=== PATIENT | female | born 1945 | race Caucasian/White ===

== ENCOUNTER 2022-05-05 17:36 | Observation (INO) | payer OTHER, SELFPAY ==
[2022-05-05 17:51] VITALS: BP 170/84; PULSE 100; RESP 18; TEMP 36.6; O2SAT 100; BMI 18.3
--- NOTE | 2022-05-05 18:05 | CRLHL7_ITS ---
For Patients: As a result of the Century Cures Act, medical imaging exams and procedure reports are released immediately into your electronic medical record. You may view this report before your referring provider. If you have questions, please contact your health care provider. Indication: Injury and pain. Technique: Pelvis and right hip 3 views. Comparison: 04/20/2021. Findings: Bones: Alignment is normal. Nondisplaced fractures of the right superior and inferior pubic rami. Right hip arthroplasty. Hardware appears intact and appropriately seated. Joint spaces: Mild left hip degenerative changes. Degenerative changes of the lower lumbar spine. Soft tissues: Unremarkable. Impression: 1. Nondisplaced right obturator ring fracture. 2. Stable right hip arthroplasty. Dictated by Ortega Downey MD @ 05/05/2022 7:03:57 PM (Electronically Signed)
--- NOTE | 2022-05-05 18:07 | ED.GENADULT ---
HPI - General Adult General Time Seen by Provider: 18:07 Date Seen: 05/05/22 Chief complaint: Fall/Minor Trauma Stated complaint: Fall Time Seen by Provider: 05/05/22 17:40 Source: patient Mode of arrival: wheelchair Limitations: physical limitation History of Present Illness HPI narrative: Patient is a 76 white female who is very active, who sees Ela Saenz in [place] for primary care. She tripped on some flagstone on her a walk and fell on her right hip, feels she might a twisted her right ankle but she is able to move that fully and has no swelling. She has some pain in her groin on the right and some lateral pain. She had a history of hip replacement with Dr. Walsh on the right in 2019. She has no other injuries no headache no back pain no neck pain no upper extremity symptoms. Presents to ED for evaluation. Related Data Allergies Allergy/AdvReac Type Severity Reaction Status Date / Time Antihistamines - Alkylamine AdvReac Verified 05/05/22 17:50 erythromycin base AdvReac Verified 05/05/22 17:48 Mlysizo-[id number] Reductase AdvReac Verified 05/05/22 17:50 Inhibitor trazodone AdvReac Verified 05/05/22 17:49 Review of Systems Status of ROS: Reports: 6 or more systems reviewed and unremarkable except as noted in History and below [facility] Social History Smoking Status: Never smoker Do you use any of these nicotine containing products: None Second hand tobacco smoke exposure: Yes How often do you have a drink containing alcohol: never How often do you have six or more drinks on one occasion: Never AUDIT-C Alcohol total score: 0 Non-prescribed substance use: denies use service: No Exam Narrative: Exam Narrative: Objective: Patient is no apparent distress, alert orient x3 HEENT is unremarkable neck is supple neurologic upper extremities unremarkable patient has no pain in her back or belly pelvis is stable she has got no bruising over her right lateral hip, postoperative scar that is well-healed noted she got a tiny abrasion over her carreon flexion extension internal external rotation of her right hip is fairly full distal CMS is normal her leg is not shortened or rotated. Neurologic is nonfocal in upper lower extremities. Good peripheral perfusion noted in upper lower extremities Const: Vital Signs, click to edit/add: Vital Signs - 24 hr 05/05/22 17:51 05/05/22 20:48 Temperature 98 F 97.4 F L Pulse Rate [Pulse Oximeter] 100 78 Respiratory Rate 18 Blood Pressure [Ri ght Upper Arm] 170/84 H 140/63 H Pulse Oximetry 100 Oxygen Delivery Me thod Room Air Course Vital Signs Vital signs: Initial Vital Signs Temperature 98 F 05/05/22 17:51 Temperature Source Temporal Artery Scan 05/05/22 17:51 Pulse Rate 100 05/05/22 17:51 Pulse Rhythm 05/05/22 17:51 Respiratory Rate 18 05/05/22 17:51 Blood Pressure 170/84 H 05/05/22 17:51 Blood Pressure Mean 112 05/05/22 17:51 Blood Pressure Position Supine 05/05/22 17:51 Pulse Oximetry 100 05/05/22 17:51 Oxygen Delivery Method 05/05/22 17:51 Vital Signs Temperature 98 F 05/05/22 17:51 Pulse Rate 100 05/05/22 17:51 Respiratory Rate 18 05/05/22 17:51 Blood Pressure 170/84 H 05/05/22 17:51 Pulse Oximetry 100 05/05/22 17:51 Oxygen Delivery Method 05/05/22 17:51 Temperature 97.4 F L 05/05/22 20:48 Pulse Rate 78 05/05/22 20:48 Respiratory Rate 18 05/05/22 17:51 Blood Pressure 140/63 H 05/05/22 20:48 Pulse Oximetry 100 05/05/22 17:51 Oxygen Delivery Method 05/05/22 17:51 Medical Decision Making [facility] Narrative Medical decision making narrative: The patient fell on her right hip and sustained pain, she has had hip replacement on the right 2 years ago, she has fairly full range of motion. For completeness I think an x-ray of her pelvis and right hip would be appropriate. She has no tenderness to her thigh knee leg or ankle other than she feels she strained her ankle but she has got full range of motion of her foot and ankle without swelling or tenderness to palpation. X-ray of the hip and pelvis as mention disposition pending findings. Lab Data Labs: Lab Results 05/05/22 Range/Units 19:29 SARS-CoV-2 (PCR) Negative SARS-CoV-2 (Negative) Influenza Type A (PCR) Negative PCR FLU A (Negative) Influenza Type B (PCR) Negative PCR FLU B (Negative) RSV (PCR) Negative PCR RSV (Negative) Discharge Plan Discharge Clinical Impression: Acute pain of right hip, Fall
--- NOTE | 2022-05-05 19:58 | W.PC.EDHO ---
Primary Language: Preferred Language: Orientation Status: [x] Alert & Oriented [] Slight Confusion [] Known Dx Dementia Transfers By: [] Assist of 1 [x] Assist of 2 [] Lift Description of Symptoms ED Triage Present Problem reports that she has injured her r hip, groin and Description ankle. had fallen when she caught her shoe on the [place] side walk. is very active in her home and does much gardening. unable to bear weight on her r leg. ED Triage Date of Onset of 05/05/22 Symptoms Female History Patient No Oxygen Administration Pulse Oximetry 100 Oxygen Delivery Method Room Air
[2022-05-05 20:22] LABS: PCR FLU A Negative PCR FLU A (Negative); PCR FLU B Negative PCR FLU B (Negative); PCR RSV Negative PCR RSV (Negative)
[2022-05-05 20:45] LABS: SARS PCR* Negative SARS-CoV-2 (Negative)
[2022-05-05 20:48] VITALS: BP 140/63; PULSE 78; TEMP 36.3
[2022-05-05 21:20] VITALS: BP 147/84; RESP 16; RESP 18; TEMP 36.7; O2SAT 99; BMI 17.7
[2022-05-05] MEDS: HYDROCODONE/ACETAMIN 7.5-325 TABLET 1 TAB PO (21:24)
[2022-05-05 21:58] VITALS: BP 147/84; RESP 18; TEMP 36.7; O2SAT 99
[2022-05-05 22:09] VITALS: O2SAT 99
--- NOTE | 2022-05-05 22:25 | P.IMHP_ITS ---
Hospitalist- H&P: HPI History of Present Illness Time Seen by Provider: 20:00 Date Seen: 05/05/22 Chief complaint: Right hip pain after a fall from standing Narrative: Maggi Ortiz is a 76 year old woman who presents to emergency department with complaint of the right hip pain status post fall from standing state. She was walking and tripped on some flag stone on her walk. Has right groin pain since then. Did undergo a right total hip arthroplasty in 2019. Did not strike her head. Did not have any loss of consciousness. No other injuries. Patient was assessed in our emergency department and determined to have sustained a nondisplaced right obturator ring fracture, involving the right superior and inferior pubic rami. Hardware of previous right total hip arthroplasty is in place and well seated. Our emergency department physician spoke with the on-call orthopedic surgeon. Orthopedic surgeon indicated that this is not the surgical fracture, recommended nonweightbearing for now, and they will assess the patient in consultation tomorrow morning. This is reviewed with the patient her . They are both agreeable to this. Patient will this be admitted to observation for pain management, as well as awaiting consultation with Orthopedic surgery, plus assessment with physical and occupational therapy. Review of Systems Status of ROS: Reports: 10 or more systems reviewed and unremarkable except as noted in History and below Narrative: Denies angina, anginal equivalent, syncope, near syncope, nausea, vomiting, palpitations, cough, dyspnea, paroxysmal nocturnal dyspnea, orthopnea, palpitations, fluttering, peripheral edema. Patient has longstanding, chronic disinterest in eating much. She tells me she is a picky eater. Denies abdominal pain, dyspepsia, dysphagia, odynophagia. Has chronic fecal incontinence related to episiotomy she had when bearing child in the remote past. Denies polyuria, polydipsia, polyphagia. Denies urinary frequency, dysuria, urgency, or hematuria. Weight has been relatively stable. For awhile her weight was lower. She works diligently with her to try to consume adequately on a daily basis. Denies fevers, rigors, diaphoresis. No recent febrile illness. No recent travel, trauma, or injury aside from what is specified above with today's incident. Requests full resuscitation in the event of cardiopulmonary demise. Does not want to be kept alive in a persistent vegetative state. Designates her as her power of assistant district attorney for health should that be required. Her primary care physician is Dr. Ela Saenz at [facility]. [facility] Medical History Adenomatous polyp Alcohol use disorder, moderate, in sustained remission Chronic obstructive pulmonary disease Diverticulosis Dry eyes, bilateral Essential hypertension Familial hypercholesteremia 2 para 2 History of diverticulitis Incontinence of feces with fecal urgency Major depressive disorder, recurrent, in full remission Mild persistent asthma Obstructive sleep apnea Osteoporosis REM sleep behavior disorder Rheumatic fever Surgical History H/O ureter repair History of bilateral cataract extraction History of colon resection Status post breast biopsy Status post right hip replacement Status post vaginal hysterectomy Social History Smoking Status: Never smoker Do you use any of these nicotine containing products: None Second hand tobacco smoke exposure: Yes How often do you have a drink containing alcohol: never How often do you have six or more drinks on one occasion: Never AUDIT-C Alcohol total score: 0 Non-prescribed substance use: denies use service: No Meds Home Medications and Allergies Home Medication Comments: 1. Fluoxetine 40 mg daily 2. Meloxicam 15 mg every morning 3. Alendronate 70 mg orally every week 4. Amlodipine 10 mg at bedtime 5. Hydrochlorothiazide 25 mg every morning 6. Tiotropium 18 mcg inhaled once daily 7. Albuterol metered-dose inhaler 2 inhalations every 4 hours as needed 8. Ellipta inhaler once daily 9. Clonazepam 1 mg at bedtime 10. Armodafinil (Nuvigil) 200 mg every morning 11. Melatonin 10 mg at bedtime 12. Loperamide 2 mg p.r.n. diarrhea 13. Refresh eyedrops for dry eyes as needed 14. Calcium with vitamin-D 500 mg daily 15. Ocuvite 1 tab daily 16. Cyanocobalamin 2000 mcg daily 17. Tonic with quinine p.r.n. 6 oz at bedtime for night leg cramps Allergies Allergy/AdvReac Type Severity Reaction Status Date / Time Antihistamines - Alkylamine AdvReac Verified 05/05/22 17:50 erythromycin base AdvReac Verified 05/05/22 17:48 [id number]-[id number] Reductase AdvReac Verified 05/05/22 17:50 Inhibitor trazodone AdvReac Verified 05/05/22 17:49 Exam Narrative: Exam Narrative: No acute distress. Appears anxious. Nevertheless appears comfortable when I see her. Alert, articulate, cooperative. Oriented to self, place, time, situation. Mood and affect are congruent. Thin, frail appearance. Vision and hearing are grossly normal. Midline nasal septum. Normal dentition. Buccal mucosa is moist. Midline trachea. Normal thyroid. Neck is supple. No adenopathy in the pre or postauricular chains, anterior-posterior cervical chains, submandibular or submental fossa, supra or infraclavicular fossa, or ax illa bilaterally. Lungs are clear to auscultation. No wheezing, rhonchi, or rales. Heart tones with regular rhythm, normal S1-S2. No murmur, gallop, or rub. Abdomen is thin, active bowel sounds, soft, nontender. Extremities without edema. Skin is warm, dry, intact. No focal motor neurologic deficits. Cranial nerves 3-12 are grossly normal. No tremor or asterixis. Const: Vital Signs, click to edit/add: Vital Signs - 24 hr 05/05/22 17:51 05/05/22 20:48 05/05/22 22:09 Temperature 98 F 97.4 F L Pulse Rate [Pulse Oximeter] 100 78 Respiratory Rate 18 Blood Pressure [Le ft Arm] Blood Pressure [Ri ght Upper Arm] 170/84 H 140/63 H Pulse Oximetry 100 99 Oxygen Delivery Me thod Room Air 05/05/22 21:58 05/05/22 21:58 Temperature 98.1 F Pulse Rate [Pulse Oximeter] Respiratory Rate 18 Blood Pressure [Le ft Arm] 147/84 H Blood Pressure [Ri ght Upper Arm] Pulse Oximetry 99 Oxygen Delivery Me thod Room Air Room Air Hospitalist - H&P: Result Imaging Pelvic x-ray: Attestation: I have reviewed the pertinent imaging results. Radiologist's impression: Nondisplaced right obturator ring fracture, involving the superior and inferior pubic rami on the right. Right hip arthroplasty hardware is intact and appropriately seated. Assessment and Plan Assessment and plan (1) Fall: Status: Acute (2) Acute pain of right hip: Status: Acute (3) Closed fracture of right superior pubic ramus: Status: Acute (4) Closed fracture of right inferior pubic ramus: Status: Acute (5) At risk for falls: Status: Acute Plan 1. Reviewed my impressions with the patient and her . 2. Answered their questions. 3. Admit to observation 4. Nonweightbearing for now. Await orthopedic surgery consultation in the morning. 5. Physical therapy, occupational therapy, and social services specialist consultation in the morning. 6. Analgesia p.r.n.. 7. Will ultimately need to continue with her treatment for osteoporosis. 8. Continue with supportive treatments for her underlying conditions as specified. 9. Will check an electrocardiogram, CBC, comprehensive metabolic panel, C reactive protein, lactate. 10. Patient and are agreeable to above stated plans and recommendations. Patient clearly states her preference is to try to return home if at all possible rather than have a transitional care stay. She understands this may not be possible in his willing to participate in transitional care rehabilitation program if absolutely needed.
[2022-05-05 23:00] VITALS: PULSE 74; RESP 18
[2022-05-05] MEDS: LOPERAMIDE HCL 2 MG CAPSULE PO (23:22)
[2022-05-05] MEDS: OXYCODONE 5 MG TABLET 2.5 MG PO (23:22)
[2022-05-05] MEDS: clonazePAM 0.5 MG TABLET 1 MG PO (23:23)
[2022-05-05] MEDS: MELATONIN 3 MG TABLET 12 MG PO (23:23)
[2022-05-05] MEDS: ACETAMINOPHEN 325 MG TABLET 650 MG PO (23:23)
[2022-05-05] MEDS: AMLODIPINE 10 MG TABLET PO (23:24)
[2022-05-06] VITALS: BP 118/64; PULSE 74; RESP 18; TEMP 36.7; O2SAT 99
[2022-05-06 00:41] VITALS: RESP 18; O2SAT 99
[2022-05-06] MEDS: OXYCODONE 5 MG TABLET 2.5 MG PO ×2 (03:44→13:17)
[2022-05-06 04:00] VITALS: BP 115/69; PULSE 70; RESP 18; TEMP 36.4; TEMP 36.7; O2SAT 99
--- NOTE | 2022-05-06 06:51 | PC.NURSE ---
Admitted last night with pelvic fx. Tolerating pain well overnight. Pain managed with PRN Oxycodone. Limited mobility on the right side but able to make major positional changed. vitals stable and afebrile. Nxo further concerns noted
[2022-05-06 06:58] LABS: Lactate* 0.5 mmol/L (0.5-1.9)
[2022-05-06 07:00] VITALS: PULSE 76; RESP 18
[2022-05-06 07:07] LABS: Basophils Absolute Auto 0.04 K/uL (0.00-0.30); Basophils Percent Auto 0.6 % (0.0-3.0); Eosinophils Absolute Auto 0.13 K/uL (0.00-0.50); Hematocrit 34.9 % (33.0-51.0); Hemoglobin* 11.8 gm/dL (12.0-16.0); Immature Granulocytes Abs Auto 0.02 K/uL (0.00-0.30); Lymphocytes Percent Auto 12.8 % (20-44); Mean Corpuscular HGB Conc 34 gm/dL (32-36); Mean Corpuscular Hemoglobin 30 pg (26-34); Mean Corpuscular Volume 88 fL (80-100); Monocytes Percent Auto 11.7 % (0.0-11.0); Neutrophils Percent Auto 72.6 % (42.0-72.0); Platelet Count* 226 K/uL (140-440); RDW Coefficient of Variation % 13.2 % (11.5-15.5); Red Blood Count 3.95 m/uL (4.00-5.20); White Blood Count* 6.48 K/uL (4.50-11.00)
[2022-05-06 07:08] LABS: Slide Review Reflex No
[2022-05-06 07:28] LABS: Chloride* 96 mmol/L (96-114); Sodium* 128 mmol/L (135-149)
[2022-05-06 07:29] LABS: Potassium* 3.8 mmol/L (3.6-5.1)
[2022-05-06 07:31] LABS: Alkaline Phosphatase* 59 U/L (40-150); Aspartate Amino Transferase* 29 U/L (12-35); Bilirubin Total* 0.5 mg/dL (0.1-1.5); Carbon Dioxide* 27 mmol/L (20-32); Creatinine* 0.5 mg/dL (0.5-1.5); Est. Creatinine Clearance* 38.29; Estimated Glomerular Filt Rate 98 ml/min
[2022-05-06 07:32] LABS: Alanine Aminotransferase* 18 U/L (4-35); Blood Urea Nitrogen* 13 mg/dL (7-30); Glucose* 96 mg/dL (60-115); Magnesium* 1.9 mg/dL (1.5-2.6); Total Protein* 6.4 g/dL (6.0-8.3)
[2022-05-06 08:00] VITALS: BP 122/71; PULSE 76; RESP 18; TEMP 36.4; O2SAT 97
--- NOTE | 2022-05-06 08:09 | PM.ORCN ---
History of Present Illness HPI Time Seen by Provider: 08:00 Date Seen: 05/06/22 Consult date: 05/06/22 Requesting physician: Xavier Garcia Consult reason: fracture Chief complaint: Right hip pain after a fall from standing Narrative: Maggi is a very pleasant 76-year-old young lady, well known to orthopedics. She underwent a right total hip arthroplasty in 2019. She is on the medical surgical unit after she was walking and tripped on some flagstone and fell yesterday. She has right groin pain. She was seen in the emergency room, x-rays were taken and found to have nondisplaced obturator ring fractures involving the right superior and inferior pubic rami. Orthopedics was asked to consult. She states that after she fell she was able to ambulate with her walker, however with pain. Date of injury 05/05/2022. Review of Systems Narrative: Patient denies nausea, vomiting, fever, chills, chest pain, shortness of breath PFSH PFSH Medical History Adenomatous polyp Alcohol use disorder, moderate, in sustained remission Chronic obstructive pulmonary disease Diverticulosis Dry eyes, bilateral Essential hypertension Familial hypercholesteremia 2 para 2 History of diverticulitis Incontinence of feces with fecal urgency Major depressive disorder, recurrent, in full remission Mild persistent asthma Obstructive sleep apnea Osteoporosis REM sleep behavior disorder Rheumatic fever Surgical History H/O ureter repair History of bilateral cataract extraction History of colon resection Status post breast biopsy Status post right hip replacement Status post vaginal hysterectomy Social History Highest level of school completed/degree received: Associate degree: academic program Smoking Status: Never smoker Do you use any of these nicotine containing products: None Second hand tobacco smoke exposure: Yes How often do you have a drink containing alcohol: never How often do you have six or more drinks on one occasion: Never AUDIT-C Alcohol total score: 0 Non-prescribed substance use: denies use service: No Meds Home Medications and Allergies Home Medications Medication Instructions Recorded Confirmed Type albuterol sulfate 90 mcg/actuation 2 puff inhalation Q4H PRN 05/06/22 05/06/22 History aerosol inhaler (ProAir HFA) alendronate 70 mg tablet 70 mg PO QWEEK 05/06/22 05/06/22 History amlodipine 10 mg tablet 10 mg PO HS 05/06/22 05/06/22 History armodafinil 200 mg tablet 200 mg PO DAILY 05/06/22 05/06/22 History calcium carbonate 500 mg-vitamin 1 tab PO DAILY 05/06/22 05/06/22 History D3 10 mcg (400 unit) tablet (Calcium 500 + D) carboxymethylcellulose sodium 1 % 1 drp ophthalmic (eye) QID PRN 05/06/22 05/06/22 History eye liquid gel drops (Refresh Liquigel) clonazepam 1 mg tablet 1 mg PO HS 05/06/22 05/06/22 History cyanocobalamin (vitamin B-12) 2,000 mcg PO DAILY 05/06/22 05/06/22 History 1,000 mcg capsule fluoxetine 40 mg capsule 40 mg PO DAILY 05/06/22 05/06/22 History fluticasone furoate 100 1 inh inhalation DAILY 05/06/22 05/06/22 History mcg/actuation blister powder for inhalation (Arnuity Ellipta) hydrochlorothiazide 25 mg tablet 25 mg PO DAILY 05/06/22 05/06/22 History loperamide 2 mg capsule (Imodium 2 mg PO QID PRN 05/06/22 05/06/22 History A-D) melatonin 10 mg capsule 10 mg PO HS 05/06/22 05/06/22 History meloxicam 15 mg tablet 15 mg PO DAILY 05/06/22 05/06/22 History tiotropium bromide 18 mcg capsule 1 cap inhalation DAILY 05/06/22 05/06/22 History with inhalation device (Spiriva with HandiHaler) vitamin A-vitamin C-vit E-min 1 tab PO DAILY 05/06/22 05/06/22 History tablet (Ocutabs tablet) white petrolatum-mineral oil 94 1 applic ophthalmic (eye) HS PRN 05/06/22 05/06/22 History %-3 % eye ointment (Systane Nighttime) Allergies Allergy/AdvReac Type Severity Reaction Status Date / Time Antihistamines - Alkylamine AdvReac Verified 05/05/22 17:50 erythromycin base AdvReac Verified 05/05/22 17:48 [id number] Reductase AdvReac Verified 05/05/22 17:50 Inhibitor trazodone AdvReac Verified 05/05/22 17:49 Ortho Exam Narrative Exam Narrative: Alert and oriented x3. Patient is in no acute distress. Converses without labored breathing. Hearing is grossly intact. Examination of the right lower extremity shows no soft tissue edema. Small nickel sized bruise on her upper thigh. CMS is intact right lower extremity. She is able to dorsiflex and plantar flex the right ankle and great toe. Good quad strength 5/5. Log-rolling the hip causes minimal discomfort. No edema of the knee. Range of motion of the knee is without pain. Const Vital Signs, click to edit/add: Vital Signs - 24 hr 05/05/22 17:51 05/05/22 20:48 05/05/22 22:09 Temperature 98 F 97.4 F L Pulse Rate [Pulse Oximeter] 100 78 Respiratory Rate 18 Blood Pressure [Left Arm] Blood Pressure [Right Upper Arm] 170/84 H 140/63 H Pulse Oximetry 100 99 Oxygen Delivery Method Room Air 05/05/22 21:58 05/05/22 21:58 05/06/22 00:41 Temperature 98.1 F Pulse Rate [Pulse Oximeter] Respiratory Rate 18 18 Blood Pressure [Left Arm] 147/84 H Blood Pressure [Right Upper Arm] Pulse Oximetry 99 99 Oxygen Delivery Method Room Air Room Air Room Air 05/05/22 21:20 05/05/22 21:20 05/06/22 00:00 Temperature 98.1 F 98.1 F 98.1 F Pulse Rate [Pulse Oximeter] 74 Respiratory Rate 16 18 18 Blood Pressure [Left Arm] 147/84 H 147/84 H 118/64 Blood Pressure [Right Upper Arm] Pulse Oximetry 99 99 99 Oxygen Delivery Method Room Air Room Air Room Air 05/05/22 23:00 05/06/22 04:00 Temperature 98.1 F Pulse Rate [Pulse Oximeter] 74 70 Respiratory Rate 18 18 Blood Pressure [Left Arm] 115/69 Blood Pressure [Right Upper Arm] Pulse Oximetry 99 Oxygen Delivery Method Room Air Documenting provider has reviewed patient's vital signs: yes Lymph Lymphatic: no lymphadenopathy noted Resp Common normals: Yes normal respiratory effort Effort & inspection: able to speak in complete sentences and symmetric chest movement Cardio Common normals: Yes no JVD Extremity Common normals: normal to inspection Results Labs Labs: Laboratory Results - last 48 hr 05/05/22 05/06/22 05/06/22 19:29 06:18 06:18 WBC 6.48 RBC 3.95 L Hgb 11.8 L Hct 34.9 MCV 88 MCH 30 MCHC 34 RDW Coeff of Liya 13.2 Plt Count 226 Neut % (Auto) 72.6 H Lymph % (Auto) 12.8 L [place] % (Auto) 11.7 H Eos % (Auto) 2.0 Baso % (Auto) 0.6 Neut # (Auto) 4.70 Lymph # (Auto) 0.80 L [place] # (Auto) 0.80 Eos # (Auto) 0.13 Baso # (Auto) 0.04 Abs Immat Gran (auto) 0.02 Sodium 128 L Potassium 3.8 Chloride 96 Carbon Dioxide 27 BUN 13 Creatinine 0.5 Estimated Creat Clear 38.29 Estimated GFR 98 Glucose 96 Lactate Calcium 9.0 Magnesium 1.9 Total Bilirubin 0.5 AST 29 ALT 18 Alkaline Phosphatase 59 C-Reactive Protein 1.0 Total Protein 6.4 Albumin 4.0 TSH SARS-CoV-2 (PCR) Negative SARS-CoV-2 Influenza Type A (PCR) Negative PCR FLU A Influenza Type B (PCR) Negative PCR FLU B RSV (PCR) Negative PCR RSV 05/06/22 05/06/22 06:18 06:18 WBC RBC Hgb Hct MCV MCH MCHC RDW Coeff of Liya Plt Count Neut % (Auto) Lymph % (Auto) [place] % (Auto) Eos % (Auto) Baso % (Auto) Neut # (Auto) Lymph # (Auto) [place] # (Auto) Eos # (Auto) Baso # (Auto) Abs Immat Gran (auto) Sodium Potassium Chloride Carbon Dioxide BUN Creatinine Estimated Creat Clear Estimated GFR Glucose Lactate 0.5 Calcium Magnesium Total Bilirubin AST ALT Alkaline Phosphatase C-Reactive Protein Total Protein Albumin TSH 7.620 H SARS-CoV-2 (PCR) Influenza Type A (PCR) Influenza Type B (PCR) RSV (PCR) Diagnostic results Additional Comments: X-rays are reviewed from 05/05/2022 of the pelvis which shows nondisplaced right obturator ring fractures. Stable right hip arthroplasty. Assessment and Plan Assessment and plan (1) Fall: Status: Acute Total time spent: Total time spent is greater than 50% in coordination of care (as documented) at patient's floor/unit and/or counseling patient: (2) Acute pain of right hip: Status: Acute Total time spent: Total time spent is greater than 50% in coordination of care (as documented) at patient's floor/unit and/or counseling patient: (3) Closed fracture of right superior pubic ramus: Status: Acute Assessment and Plan: It is discussed with Maggi that her right obturator ring fractures are of stable fracture pattern. Her right total hip arthroplasty is stable. She will be mobilized immediately with protected weight-bearing right lower extremity. We discussed that this means she can weightbear with her walker and put as much weight as is comfortable on the right lower extremity weight-bearing as tolerated. She lives on a single level home which is handicap accessible. She is hopeful that she can go home. Physical therapy will work with her. Depending on how physical therapy goes, she may need a short stay half-way facility. She will follow up with Orthopedics in 6 weeks with x-rays of her pelvis prior to being seen. She is in agreement the plan. All questions were answered. Note, dictation performed with voice recognition, and as a result, wrong word or sound like substitutions may have occurred. There may be areas in the script that have gone on detected. Please consider this when interpreting information found in the chart. Total time spent: Total time spent is greater than 50% in coordination of care (as documented) at patient's floor/unit and/or counseling patient: (4) Closed fracture of right inferior pubic ramus: Status: Acute Total time spent: Total time spent is greater than 50% in coordination of care (as documented) at patient's floor/unit and/or counseling patient: (5) At risk for falls: Status: Acute Total time spent: Total time spent is greater than 50% in coordination of care (as documented) at patient's floor/unit and/or counseling patient:
[2022-05-06] MEDS: hydroCHLOROthiazide 25 MG TABLET PO (08:33)
[2022-05-06] MEDS: CYANOCOBALAMIN (VITAMIN B-12) 500 MCG TABLET 2000 MCG PO (08:33)
[2022-05-06] MEDS: ACETAMINOPHEN 325 MG TABLET 650 MG PO ×2 (08:33→13:17)
[2022-05-06] MEDS: FLUOXETINE HCL 20 MG CAPSULE 40 MG PO (08:33)
--- NOTE | 2022-05-06 10:54 | NUTR.NU ---
ALLISONN with MD consult and underweight BMI. RDN visited with patient whom reported her body weight has always been low. She reports having a low sense of taste and smell over the years, however this is not concerning for her. Her weight has been stable recently. Current weight 110 lbs; Weight 04/20/2021 108 lbs; BMI 18.3 kg/m2 which is underweight. Patient reported discharging today from hospital. She did not have any questions or concerns/requests at this time. No nutrition interventions at this time.
--- NOTE | 2022-05-06 14:26 | PC.SOCIAL ---
Met with pt. and spouse to discuss discharge plans. Pt. is moving well and spouse is able to assist at home as needed. Gave pt. a list of area home health billing specialist agencies if pt. needs any additional assistance once at home.
--- NOTE | 2022-05-06 14:26 | PC.NURSE ---
Patient ambulating in hallways without concern prior to discharge using walker and GB with . Pt reports pain is manageable, gave 2.5 oxy with tyln. prior to discharge. D/c instructions reviewed with patient and spouse, both denied any further questions. Pt discharged at 1350 home with spouse.
--- NOTE | 2022-05-06 16:40 | P.DS_ITS ---
DS: Providers Provider Date Seen: 05/06/22 Date of admission: 05/05/22 20:50 Primary care physician: Ela Saenz MD Admitting Clinician: Xavier Garcia MD Consults: 05/05/22 21:58 Consult to Nutrition [CONS] Routine Comment: Reason for consult:: Miscellaneous Comment: picky eater Consult to Physical Therapy [CONS] Routine Comment: Reason(s) for PT Consult:: Evaluate and Treat Any Restrictions?:: Non Wt Bearing Comment: Ortho will consult in AM 05/06/2022 Consult to Rnfa [CONS] Routine Comment: Reason for Consult:: Discharge Planning Needs 05/05/22 22:00 Consult to Occupational Therapy [CONS] Routine Comment: Reason(s) for OT Consult:: Evaluate and Treat Any Restrictions?:: Non Wt Bearing Comment: Ortho will consult in AM 05/06/2022 05/06/22 08:10 Consult to Physical Therapy [CONS] Routine Comment: Reason(s) for PT Consult:: Recent Falls Any Restrictions?:: Wt Bearing as Tolerated Comment: protected weightbearing rt lower extremity. mobilize immediately Attending Physician on discharge: Taya Bain MD [facility] Date of Discharge: 05/06/22 DS: Diagnosis Discharge Diagnosis (1) Fall: Status: Acute Problem details: Resulted in a closed fracture of the right inferior pubic ramus. Stable and progressing with PT this morning. Pain is controlled with oral oxycodone. I am adding nasal calcitonin, scheduled Tylenol. (2) Closed fracture of right inferior pubic ramus: Status: Acute Problem details: 1. Nondisplaced right obturator ring fracture. 2. Stable right hip arthroplasty. DS: Summary Hospital Course Hospital Course: HOSPITALIST DISCHARGE SUMMARY ATTENDING PHYSICIAN: Taya Bain MD FINAL DIAGNOSIS: Nondisplaced right obturator ring fracture. Osteoporosis History of right hip arthroplasty HOSPITAL FOLLOWUP ISSUES: 1. Nondisplaced right pelvic ring fracture. She will see Orthopedics in 6 weeks. We outlined pain management plan. REFERRALS WHILE ADMITTED: Physical therapy, Orthopedics REFERRALS AFTER DISCHARGE: None BRIEF HOSPITAL COURSE: Ela Khalil is a delightful patient who unfortunately fell yesterday suffering acute right hip pain she sought attention in the emergency room. She did have a history of her right total hip arthroplasty and was concerned about her previous surgery that was performed 2 years ago. Upon arrival she had x-rays. He is x-ray showed that she had a closed right-sided ring fracture of her pelvis. Her arthroplasty was intact and appeared on injured. She was admitted overnight for pain control. She only received 2 doses of 2.5 mg oxycodone. She walked well with the use of a walker with protected weight-bearing status. Orthopedics felt she could discharge home as this is not a surgical intervention typically needed. She was anxious to return home. We Rx'd a walker, taught her and her how to use it. OT was happy with her progress. We outlined a pain management plan that includes scheduled acetaminophen, scheduled Calcitonin, p.r.n. oxycodone VITAL SIGN, MEDICATION, LAB/MICRO, IMAGING SUMMARY (full details available in account tabs or by records request) DISCHARGE MEDICATIONS: See Reconciled list REVIEW OF SYSTEMS No new chest pain or dyspnea Pain controlled No voiding difficulties Tolerating diet challenge PHYSICAL EXAM: CONSTITUTIONAL: VITAL SIGNS: see record. HEENT: Normocephalic, atraumatic. PERRL, EOMI, conjunctivae pink, no scleral icterus. Ears and nose externally normal. Pharynx normal. NECK: No JVD. No carotid bruit, no thyromegaly, no adenopathy. CHEST: Clear to auscultation bilaterally. HEART: S1 and S2 normal. Edema ABDOMEN: Soft, nontender. Normal bowel sounds. MUSCULOSKELETAL: No gross joint deformity or swelling. NEURO: Cranial nerves intact. Grossly intact. No asymmetric findings. SKIN: No rashes, petechiae, concerning changes PSYCHIATRIC: Mood euthymic. DISPOSITION: Home with her [place] Time spent on discharge 37 minutes. Status at Discharge Functional status at discharge: uses cane/walker Overall status at discharge: patient is progressing back to baseline Time Spent with Patient Time attestation: Total time spent providing and/or coordinating discharge services: Time spent: Greater than 30 minutes Exam Const: Vital Signs, click to edit/add: Vital Signs - 24 hr 05/05/22 17:51 05/05/22 20:48 05/05/22 22:09 Temperature 98 F 97.4 F L Pulse Rate [Pulse Oximeter] 100 78 Respiratory Rate 18 Blood Pressure [Le ft Arm] Blood Pressure [Ri ght Upper Arm] 170/84 H 140/63 H Pulse Oximetry 100 99 Oxygen Delivery Me thod Room Air 05/05/22 21:58 05/05/22 21:58 05/06/22 00:41 Temperature 98.1 F Pulse Rate [Pulse Oximeter] Respiratory Rate 18 18 Blood Pressure [Le ft Arm] 147/84 H Blood Pressure [Ri ght Upper Arm] Pulse Oximetry 99 99 Oxygen Delivery Me thod Room Air Room Air Room Air 05/05/22 21:20 05/05/22 21:20 05/06/22 00:00 Temperature 98.1 F 98.1 F 98.1 F Pulse Rate [Pulse Oximeter] 74 Respiratory Rate 16 18 18 Blood Pressure [Le ft Arm] 147/84 H 147/84 H 118/64 Blood Pressure [Ri ght Upper Arm] Pulse Oximetry 99 99 99 Oxygen Delivery Me thod Room Air Room Air Room Air 05/05/22 23:00 05/06/22 04:00 05/06/22 07:00 Temperature 98.1 F Pulse Rate [Pulse Oximeter] 74 70 76 Respiratory Rate 18 18 18 Blood Pressure [Le ft Arm] 115/69 Blood Pressure [Ri ght Upper Arm] Pulse Oximetry 99 Oxygen Delivery Me thod Room Air 05/06/22 08:00 05/06/22 04:00 Temperature 97.6 F 97.6 F Pulse Rate [Pulse Oximeter] 76 Respiratory Rate 18 18 Blood Pressure [Le ft Arm] 122/71 Blood Pressure [Ri ght Upper Arm] Pulse Oximetry 97 Oxygen Delivery Me thod Room Air DS: Data Data Completed and Pending Labs on day of discharge: Labs from last 24 hours 05/06/22 05/06/22 05/06/22 06:18 06:18 06:18 WBC RBC Hgb Hct MCV MCH MCHC RDW Coeff of Liya Plt Count Neut % (Auto) Lymph % (Auto) [place] % (Auto) Eos % (Auto) Baso % (Auto) Neut # (Auto) Lymph # (Auto) [place] # (Auto) Eos # (Auto) Baso # (Auto) Abs Immat Gran (auto) Sodium 128 L Potassium 3.8 Chloride 96 Carbon Dioxide 27 BUN 13 Creatinine 0.5 Estimated Creat Clear 38.29 Estimated GFR 98 Glucose 96 Lactate 0.5 Calcium 9.0 Magnesium 1.9 Total Bilirubin 0.5 AST 29 ALT 18 Alkaline Phosphatase 59 C-Reactive Protein 1.0 Total Protein 6.4 Albumin 4.0 TSH 7.620 H SARS-CoV-2 (PCR) Influenza Type A (PCR) Influenza Type B (PCR) RSV (PCR) 05/06/22 05/05/22 06:18 19:29 WBC 6.48 RBC 3.95 L Hgb 11.8 L Hct 34.9 MCV 88 MCH 30 MCHC 34 RDW Coeff of Liya 13.2 Plt Count 226 Neut % (Auto) 72.6 H Lymph % (Auto) 12.[address] % (Auto) 11.7 H Eos % (Auto) 2.0 Baso % (Auto) 0.6 Neut # (Auto) 4.70 Lymph # (Auto) 0.[address] # (Auto) 0.80 Eos # (Auto) 0.13 Baso # (Auto) 0.04 Abs Immat Gran (auto) 0.02 Sodium Potassium Chloride Carbon Dioxide BUN Creatinine Estimated Creat Clear Estimated GFR Glucose Lactate Calcium Magnesium Total Bilirubin AST ALT Alkaline Phosphatase C-Reactive Protein Total Protein Albumin TSH SARS-CoV-2 (PCR) Negative SARS-CoV-2 Influenza Type A (PCR) Negative PCR FLU A Influenza Type B (PCR) Negative PCR FLU B RSV (PCR) Negative PCR RSV Discharge Plan Discharge Disposition: Home w/ Parent or Adult Date of Admission: 05/05/22 20:50 Attending Provider on Discharge: Taya Bain Primary Care Provider: Ela Saenz Anticipated Discharge Date/Time: 05/06/22 12:42 Discharge Medications: New acetaminophen 325 mg Tablet 650 mg PO QID Qty: 180 0RF oxycodone 5 mg Tablet 2.5 mg PO Q4H PRNQty: 30 0RF calcitonin (salmon) 200 unit/actuation spray,non-aerosol 1 spray intranasal (ALT) DAILY Qty: 3.7 2RF Continued albuterol sulfate [ProAir HFA] 90 mcg/actuation HFA aerosol inhaler 2 puff INHALATION Q4H PRN alendronate 70 mg tablet 70 mg PO QWEEK amlodipine 10 mg tablet 10 mg PO HS armodafinil 200 mg tablet 200 mg PO DAILY clonazepam 1 mg tablet 1 mg PO HS fluoxetine 40 mg capsule 40 mg PO DAILY Arnuity Ellipta 100 mcg/actuation blister with device 1 inh INHALATION DAILY hydrochlorothiazide 25 mg tablet 25 mg PO DAILY meloxicam 15 mg tablet 15 mg PO DAILY Spiriva with HandiHaler 18 mcg capsule, w/inhalation device 1 cap INHALATION DAILY melatonin 10 mg capsule 10 mg PO HS loperamide [Imodium A-D] 2 mg capsule 2 mg PO QID PRN carboxymethylcellulose sodium [Refresh Liquigel] 1 % drops, liquid gel 1 drp ophthalmic (eye) QID PRN calcium carbonate-vitamin D3 [Calcium 500 + D] 500 mg-10 mcg (400 unit) tablet 1 tab PO DAILY Ocutabs Tablet 1 tab PO DAILY cyanocobalamin (vitamin B-12) 1,000 mcg capsule 2,000 mcg PO DAILY Systane Nighttime 94-3 % ointment 1 applic ophthalmic (eye) HS PRN Discharge Orders: Discharge Order (Routine); Ordered 05/06/22 Ordered By: Taya Bain Patient Education: Acetaminophen (By mouth), Oxycodone, Rapid Release (By mouth), Calcitonin (Into the nose), Pain Management in Older Adults (DC) Activity Restrictions/Additional Instructions: Pain management plan: Schedule your Tylenol. Even if you not totally sure you needed at least over the next 2 weeks go ahead and take it. Schedule your nasal spray. This nasal spray specifically has been shown to alleviate pain from fractures of pelvis and spine. As needed feel free to use 2.5-5 mg of oxycodone, this may help you get more comfortable at night. Activity Level: Weight Bearing as Tolerated Activity Detail: Protected weight-bearing right lower extremity. Discharge Diet: Regular Follow Up Appointments: Marko Carvajal MD [Staff Physician] - 06/16/22 10:10 am Ela Saenz MD [Primary Care Provider] - (Schedule as needed) Forms: MyHealth Info Instructions Discharge Comments: Appointment with Orthopedics in 6 weeks.
== END 2022-05-06 13:50 | disposition home or self-care (01) ==
LOC: ED 18:35 → MEDSURG 20:50
PROVIDERS: Admitting Provider Internal Medicine; Emergency Provider Family Medicine; PCP Internal Medicine; Visit Provider Internal Medicine
DX: S32.511A Fracture of superior rim of right pubis, initial encounter for closed fracture (principal); S32.591A Other specified fracture of right pubis, initial encounter for closed fracture; Z96.641 Presence of right artificial hip joint; W19.XXXA Unspecified fall, initial encounter; M80.0AXA Age-related osteoporosis with current pathological fracture, other site, initial encounter for fracture; Z91.81 History of falling; R10.31 Right lower quadrant pain; F10.21 Alcohol dependence, in remission; Z87.19 Personal history of other diseases of the digestive system; Z87.898 Personal history of other specified conditions; Z98.890 Other specified postprocedural states; I10 Essential (primary) hypertension; E78.5 Hyperlipidemia, unspecified; Z13.29 Encounter for screening for other suspected endocrine disorder
CPT/HCPCS: 36415; 73502; 80053; 81003; 83605; 83735; 84443; 85025; 86140; 87502; 87634; 87635; 93005; 94761; 97116; 97161; 97165; 99284; A9270; G0378; G0379

== ENCOUNTER 2022-09-20 10:00 | Outpatient (RCR) | payer OTHER, SELFPAY ==
--- NOTE | 2022-07-21 15:17 | PT.OPEX ---
[facility] Eval PT [facility] Outpatient Eval Start: 07/16/22 08:21 Freq: Status: Active Protocol: Document 07/21/22 08:14 GLADIS (Rec: 07/21/22 08:29 GLADIS [id number]) E-signed By Leny Winchester, PT Physical Therapy Outpatient Evaluation Insurance Information Insurance Name Other; See Comments Insurance Information/Comments [employer] Medical Diagnosis Closed Fx of R inf pubic rami Nondisplaced right obturator ring fracture. other specified R pubis Rx Treating Diagnosis pain Referring MD Dr Kaley Tay presents to PT with diagnosis of pelvic fracture. She sustained her pelvic fracture following a fall on May 06, 2022. Pt was diagnosed with a pelvic fracture at the ED and sent home with a walker with instructions to progress to cane after 1 month. Pt continues to ambulate with a cane outside and when she is feeling tired. Overall she reports she is doing well and her pain levels are a 0-3/10. Pain interferes with her ability to ambulate stairs, walk community distances/ shopping, prolonged standing, and getting in/out of bed. Her main c/o current is weakness and balance issues. Goals for therapy are improving balance and strength Pain Comments 0-3/10 Date of Last Physician Visit 06/16/22 Current Work Status Retired Precautions Treatment Precautions/Contraindications R DONITA 2019 COPD HTN osteoporosis depression arthritis Objective Functional Test Performed & Score Dynamic gait index score: 18/ 24 = mild fall risk Assessment Assessment/Impression 77 yo client presents with diagnosis of R pubic/pelvic fracture that occurred over 2 months ago. Overall she has done well with recovery. In standing, does stand with increased wt on her L LE with her R knee slightly flexed. Does have mild gait deviation with walking as seen with no arm swing, no trunk rotation, and shortened B stride lengths . Overall B hip PROM is WFL. Moderate tightness in noted in R hip ADD and hip flexors/ quad as compared to L. Weakness is present with R hip flexion, hip ABD, and quad (4 /5), otherwise strength is WFL. Testing of Dynamic Gait Index places client at minimal fall risk. Plan is to continue with further skilled PT services including use of therapeutic exercise, therapeutic activities, neuromuscular re-ed, manual therapy, and self cares for symptom reduction. Plan of Care Rehabilitation Potential Good Physical Therapy Goals Short-term goals to be completed in 4 weeks : 1. Pt will demonstrate safe ambulation without an AD and without gait deviation X 200 ft . 2. Pt will demonstrate >4+/5 glute max and med strength to assist in normalizing gait pattern and ease with transfers. Long-term goals to be completed in 12 weeks: 1. Pt will be independent with HEP for improving his function 2. Pt will report ability to safely and independently ambulate community based distances (ie shopping) without an increase in pain 3. Pt will increase her dynamic gait index score to at least a 20/24 for a reduction in her risk for falls. Coordination/Communication With Referral Source Treatment Plan/Direct Interventions Gait Training,Joint Mobilization,Manual Therapy, Neuromuscular Re-ed,Self-Care/ Home Management,Therapeutic Activities,Therapeutic Exercises Frequency/Duration 1 time a week for up to 8 visits Patient Will Be Discharged From Therapy Completion of LTG(s),Skills Plateau,Independent w/HEP, Independently Progressing Evaluation Billing Untimed Code Treatment Minutes 30 Complexity Moderate Certification Information Initial Certification Date 07/21/22 Ending Certification Date 10/19/22 Provider Signature Shows Agreement With POC & Medical Necessity Physician Signature & Date Requested Please Sign/Date Here Physician Comment/Change : Physician NPI Number #
== END 2023-02-08 14:37 | disposition home or self-care (01) ==
PROVIDERS: PCP Internal Medicine; Visit Provider Orthopaedic Surgery
DX: S32.591D Other specified fracture of right pubis, subsequent encounter for fracture with routine healing (principal); R53.1 Weakness; R26.81 Unsteadiness on feet; R26.89 Other abnormalities of gait and mobility; R52 Pain, unspecified; Z51.89 Encounter for other specified aftercare
CPT/HCPCS: 97110; 97140; 97162

== ENCOUNTER 2023-04-06 10:30 | Outpatient (RCR) | payer OTHER, SELFPAY ==
--- NOTE | 2023-03-09 15:40 | PT.OPEX ---
PT [facility] Eval PT [facility] Outpatient Eval Start: 03/09/23 07:44 Freq: Status: Active Protocol: Document 03/09/23 07:45 JEAN PIERRE (Rec: 03/09/23 14:46 KLV [id number]) E-signed By Azeb Cloud, PT Physical Therapy Outpatient Evaluation Insurance Information Recert Due Date 06/03/23 Insurance Name Medicare B,Other; See Comments Insurance Information/Comments [employer] Medical Diagnosis Low back pain Treating Diagnosis Low back pain, abnormal posture, muscle weakness Referring MD Velasquez Subjective Subjective Maggi reports to PT with primary complaint of low back pain. She sustained a pelvic fracture 05/06/22 with bout of PT following. She notes PT really helped at the time and no longer having pain in pelvis, just diffuse low back pain. Significant scoliotic curve of thoracolumbar spine ( seen on x-ray results below) that most likely has been chronic. She is currently having pain with bending over and backwards. Goals are to improve low back and hip strength to be able to continue gardening and walking . Denies radicular symptoms or bowel/bladder changes. Per Dr. Velasquez note: x-ray : Shows a significant leftward scoliotic curve her thoracolumbar of about 40?. She thinks she might have had this longstanding but clearly worsened now. The patient has some facet arthropathy but not significant. No fractures noted. She does have the pelvic ring abnormality that persists, there does appear to be callus around the fracture sites on the right superior and inferior pubic rami. Will have the radiologist read this as well. Radiologist report: Levo scoliotic deformity at the upper lumbar spine. Right hip replacement hardware. Slight anterolisthesis of L4 on L5. No compression fracture. Disc space narrowing and spurring with discogenic sclerosis on the right at L2-3. Increased stool in the colon consistent with constipation. PMH: R DONITA, COPD, HTN, osteoporosis, arthritis Pain Comments 0-2/10 worst Current Work Status Retired Precautions Therapy Limitations/Systems Review Not Limited Objective Other/Pertinent Objective Observation: left scoliotic curve, increased tone L thoracic and lumbar paraspinal Lumbar ROM: -Flx: 75% carreon, no pain -Ext: 75%, hinge at hips, minimal lumbar mobility -R Rot: 75%, pull noted -L Rot: 100% no pain -R Sidebend: 100% -L Sidebend: 75%, limited d/t mechanical dysfunction of low back Hip ROM WNL no pain B LE Strength (R/L): -Hip Abd: R: 4/5, L: 5/5 -Hip ER: R: 4/5, L: 5/5 -Hip Flx: R: 4/5, L: 5/5 SL balance: -R trendelenburg 4 sec -L 8 sec Hooklying core: 4/5 Leg length: L medial malleolus ~1/2 shorter than R Sitting posture: posterior pelvic tilt, rounded shoulders Functional Test Performed & Score Oswestry: 12, 24% Assessment Assessment/Impression Patient is a 77 year old female presenting to physical therapy for evaluation and treatment of low back pain complicated by pelvic fx Apr 2022, R DONITA, COPD, HTN, osteoporosis, arthritis. Patient presents with low back pain, abnormal posture, muscle weakness. These impairments are limiting the patients ability to bend over repetitively to garden, sleep comfortably at night, sit comfortably in her recliner at night. Patient appears motivated to participate in PT and presents with good prognosis to improve mobility, strength, proprioception and return to functional activities with skilled physical therapy intervention. Primary Functional Limitations bend over repetitively to garden, sleep comfortably at night, sit comfortably in her recliner at night Plan of Care Rehabilitation Potential Good Physical Therapy Goals In 6 weeks (04/20/23) Pt will be able to bend and lift household items from the floor to shoulder height to perform ADLs without pain. Patient is able to sleep with waking 0-1 times per week due to pain. In 12 weeks (06/01/23) Pt will exhibit 20% improvement on the Modified Oswestry Outcome measure to demonstrate functional improvement and progress towards goals. Pt will be able to bend repetitively x10 from the floor to shoulder height to be able to weed in her garden with <1/10 pain. Pt will demonstrate at least 4 +/5 strength MMT in glut max & glut med to improve dynamic control with SLS activities and gait. Treatment Plan/Direct Interventions Gait Training,Ice/Cold/ Vasopneumatic,Joint Mobilization,Manual Therapy, Neuromuscular Re-ed,Self-Care/ Home Management,Therapeutic Activities,Therapeutic Exercises Frequency/Duration 2x/wk for 8 weeks Patient Will Be Discharged From Therapy Completion of LTG(s), Independent w/HEP, Independently Progressing Evaluation Billing Untimed Code Treatment Minutes 25 Complexity Moderate Certification Information Initial Certification Date 03/09/23 Ending Certification Date 06/03/23 Provider Signature Shows Agreement With POC & Medical Necessity Physician Signature & Date Requested Please Sign/Date Here Physician Comment/Change : Physician NPI Number #
== END 2023-04-06 12:15 | disposition home or self-care (01) ==
PROVIDERS: PCP Internal Medicine; Visit Provider Family Medicine
DX: M54.50 Low back pain, unspecified (principal); M41.9 Scoliosis, unspecified; R29.3 Abnormal posture; M62.81 Muscle weakness (generalized); Z51.89 Encounter for other specified aftercare
CPT/HCPCS: 97110; 97112; 97140; 97162; 97530

== ENCOUNTER 2023-04-21 06:51 | Day surgery (SDC) | payer OTHER, SELFPAY ==
[2023-04-21] VITALS (8 sets, daily range): BP systolic 112–158; BP diastolic 64–81; PULSE 68–79; RESP 15–20; TEMP 36.5; O2SAT 97–100; BMI 18.1
[2023-04-21] MEDS: BUPIVACAINE 0.5% 30 ML INJECTION (07:52)
[2023-04-21] MEDS: lidocaine HCL 2 % MULTIDOSE 20 ML VIAL INJECTION (07:52)
--- NOTE | 2023-04-21 08:19 | PM.ORPRC ---
Procedure Note Date of procedure: 04/21/23 Procedure: Preop diagnosis: Right hand ring finger stenosing tenosynovitis Postop diagnosis: Right hand ring finger stenosing tenosynovitis Procedure: Right hand ring finger A1 madison release Anesthesia: Local Surgeon: Jayson Roche MD registered medical assistant: GUNNER Gomez EBL: 0 mL Complications: None Specimens: None Drains: None Preoperative antibiotics: None Indications: The patient has a history of right upper extremity ring finger painful catching and locking. Despite appropriate non operative management including flexor tendon sheath corticosteroid injections they continue to have symptoms. Operative intervention was recommended. The risks, benefits alternatives and expected outcomes were discussed in detail. These included but were not limited to: Infection, bleeding, injury to blood vessel or nerve, venous thromboembolism. All questions were answered to their satisfaction. The patient was placed supine on the operating room table. Local anesthesia was established with 0.5% Marcaine without epinephrine and 2% lidocaine without epinephrine. The hand was prepped and draped in usual sterile fashion. The limb was elevated the forearm pneumatic tourniquet was inflated to 250 mm of mercury. A transverse incision was made centered over the base of the ring finger in the distal palmar crease. Subcutaneous dissection was taken through the palmar fascia to the flexor tendons with the tenotomy scissors. The A1 madison was released with the 15 blade and a tenotomy scissors. Active flexion and extension of the finger shows no catching or locking, no bowstringing of the flexor tendons. The wound was closed with interrupted nylon sutures. A dry dressing was applied the tourniquet was released. Sponge and needle counts were correct x 2. The patient tolerated the procedure well, there were no apparent complications. They were sent to same day surgery in satisfactory condition. Plan: Use of the hand as tolerates. Discontinue the intraoperative dressing on postoperative day 3 and may get the wound wet as tolerates. Follow up in the office in 2 weeks for a wound check and suture removal.
== END 2023-04-21 08:41 | disposition home or self-care (01) ==
PROVIDERS: PCP Internal Medicine; Visit Provider Orthopaedic Surgery
PROC: (CPT 26055; principal; 2023-04-21 08:00)
DX: M65.341 Trigger finger, right ring finger (principal); M65.841 Other synovitis and tenosynovitis, right hand
CPT/HCPCS: 26055; J0665

== ENCOUNTER 2024-09-13 15:00 | Outpatient (CLI) | payer OTHER, SELFPAY ==
--- NOTE | 2024-09-13 15:30 | CRLHL7_ITS ---
For Patients: As a result of the Century Cures Act, medical imaging exams and procedure reports are released immediately into your electronic medical record. You may view this report before your referring provider. If you have questions, please contact your health care provider. INDICATION: Low back pain. TECHNIQUE: Noncontrast MRI of the lumbar spine is performed in the usual fashion. No comparisons. FINDINGS: Moderate lumbar levoscoliosis. Mild grade 1 degenerative anterolisthesis of L4 on 5 and L2 on 3. The overall stature, alignment and intrinsic marrow signal within the remainder of the lumbar spine appears within normal limits. Conus appears within normal limits. T12-L1: Unremarkable. L1-2: Bilateral facet arthropathy results in mild bilateral foraminal with no central canal narrowing. L2-3: Mild rightward eccentric disc bulge results in moderate right foraminal narrowing with contact and compression of the exiting right L2 nerve root. Mild central canal narrowing with no left foraminal narrowing. L3-4: Mild broad-based posterior disc bulge and mild bilateral facet arthropathy results in no central canal or foraminal narrowing. L4-5: Mild broad-based posterior disk bulge that is eccentric to the left results in minimal left foraminal narrowing and no central canal or right foraminal narrowing. L5-S1: Moderate left-sided facet arthropathy results in mild left foraminal narrowing with no central canal or right foraminal narrowing. IMPRESSION: 1. Moderate lumbar levoscoliosis. 2. Moderate right L2-3 foraminal narrowing with compression of the exiting right L2 nerve root. 3. Milder degenerative changes within the remainder of the lumbar spine as outlined above. Dictated by Brandon Aguirre MD @ 09/16/2024 10:27:09 AM (Electronically Signed)
== END 2024-09-13 15:01 | disposition home or self-care (01) ==
LOC: MRI 15:01
PROVIDERS: PCP Internal Medicine; Visit Provider Family Medicine
DX: M54.50 Low back pain, unspecified (principal); M51.26 Other intervertebral disc displacement, lumbar region; M41.9 Scoliosis, unspecified; M79.605 Pain in left leg
CPT/HCPCS: 72148